=== PATIENT | female | born 1940 | race Asian ===

== ENCOUNTER 2016-08-15 08:55 | Outpatient (CLI) | payer MEDICARE, OTHER | END 2016-08-15 08:56 | disposition home or self-care (01) | DX: E78.5 Hyperlipidemia, unspecified (principal); E11.9 Type 2 diabetes mellitus without complications; M85.80 Other specified disorders of bone density and structure, unspecified site ==

== ENCOUNTER 2017-10-05 10:40 | Outpatient (CLI) | payer MEDICARE, OTHER ==
[2017-10-05 11:46] LABS: BASOPHILS # (AUTO) 0.1 10^3/uL (0.0-0.1); BASOPHILS % (AUTO) 1.2 %; EOSINOPHILS # (AUTO) 0.1 10^3/uL (0.0-0.7); EOSINOPHILS % (AUTO) 2.8 %; HGB - HEMOGLOBIN 14.2 g/dL (12.0-16.0); LYMPHOCYTES # (AUTO) 1.3 10^3/uL (1.5-3.5); LYMPHOCYTES % (AUTO) 29.5 %; MEAN CORPUSCULAR HEMOGLOBIN 31.9 pg (27.0-31.0); MEAN CORPUSCULAR HGB CONC 34.2 g/dL (32.0-36.0); MEAN CORPUSCULAR VOLUME 93.5 fL (81.0-99.0); MEAN PLATELET VOLUME 8.5 fL (7.9-10.8); MONOCYTES # (AUTO) 0.2 10^3/uL (0.0-1.0); MONOCYTES % (AUTO) 5.4 %; NEUTROPHILS # (AUTO) 2.7 10^3/uL (1.5-6.6); NEUTROPHILS % (AUTO) 61.1 %; PLT - PLATELET COUNT 210 10^3/uL (130-450); RED BLOOD COUNT 4.44 10^6/uL (4.20-5.40); RED CELL DISTRIBUTION WIDTH 12.3 % (12.0-15.0); WHITE BLOOD COUNT 4.4 x10^3/uL (4.8-10.8)
[2017-10-05 12:01] LABS: HB2 TOTAL 15.7 g/dL; HEMOGLOBIN A1C 0.78 g/dL; HEMOGLOBIN A1C % 6.7 % (4.6-6.2)
[2017-10-05 12:06] LABS: ALBUMIN 4.3 g/dL (3.2-5.5); ALBUMIN/GLOBULIN RATIO 1.3 (1.0-2.2); ALKALINE PHOSPHATASE 70 IU/L (42-121); ALT ALANINE AMINOTRANSFERASE 32 IU/L (10-60); AST ASPARTATE AMINOTRANSFERASE 33 IU/L (10-42); BILIRUBIN,TOTAL 0.8 mg/dL (0.2-1.0); BUN - BLOOD UREA NITROGEN 15 mg/dL (6-20); CALCIUM 9.4 mg/dL (8.5-10.3); CARBON DIOXIDE - CO2 27 mmol/L (21-32); CHLORIDE 102 mmol/L (101-111); CHOL/HDL RATIO 4.8 (<4.4); CHOLESTEROL 252 mg/dL; CREATININE 0.5 mg/dL (0.4-1.0); GFR - MDRD 120 (>89); GLUCOSE 117 mg/dL (70-100); HDL CHOLESTEROL 53 mg/dL; LDL CHOLESTEROL,CALCULATED 170 mg/dL; LDL/HDL RATIO 3.2 (<4.4); SODIUM 138 mmol/L (135-145); TOTAL PROTEIN 7.5 g/dL (6.7-8.2); VLDL CHOLESTEROL 29 mg/dL
== END 2017-10-05 10:41 | disposition home or self-care (01) ==
LOC: LAB 10:40
PROVIDERS: ATTEND Family Medicine
DX: M85.80 Other specified disorders of bone density and structure, unspecified site (principal); E78.5 Hyperlipidemia, unspecified; E11.9 Type 2 diabetes mellitus without complications
CPT/HCPCS: 36415; 80053; 80061; 82306; 83036; 83721; 85025

== ENCOUNTER 2018-01-16 09:39 | Outpatient (CLI) | payer MEDICARE, OTHER ==
[2018-01-16 10:07] LABS: CREATININE 0.5 mg/dL (0.4-1.0)
[2018-01-16 10:17] LABS: HB2 TOTAL 15.5 g/dL; HEMOGLOBIN A1C 0.74 g/dL; HEMOGLOBIN A1C % 6.5 % (4.6-6.2)
== END 2018-01-16 09:40 | disposition home or self-care (01) ==
LOC: LAB 09:39
PROVIDERS: ATTEND Family Medicine
DX: E11.9 Type 2 diabetes mellitus without complications (principal)
CPT/HCPCS: 36415; 80048; 83036

== ENCOUNTER 2018-10-05 10:01 | Outpatient (CLI) | payer MEDICARE, OTHER ==
--- NOTE | 2018-10-07 09:00 | XRAY Report ---
Reason: LEFT ANKLE PAIN Procedure Date: 10/05/2018 Accession Number: [id number] / [id number] Procedure: XR - Foot 3 View LT CPT Code: FULL RESULT: EXAM: LEFT FOOT RADIOGRAPHY EXAM DATE: 10/05/2018 10:38 AM. CLINICAL HISTORY: LEFT ANKLE PAIN. Left foot pain. COMPARISON: None. TECHNIQUE: 3 views. FINDINGS: Bones: Normal. No fractures or bone lesions. Joints: No subluxations. Evidence of mild degenerative disease at the tarsometatarsal joints, particularly of the first through third. Soft Tissues: Normal. No soft tissue swelling. IMPRESSION: 1. No acute abnormality. 2. Tarsometatarsal joint degenerative disease. RADIA
== END 2018-10-05 10:02 | disposition home or self-care (01) ==
LOC: DI 10:01
PROVIDERS: ATTEND Specialist
DX: M19.072 Primary osteoarthritis, left ankle and foot (principal)

== ENCOUNTER 2019-03-06 11:31 | Emergency (ER) | payer MEDICARE, OTHER ==
--- NOTE | 2019-03-06 12:27 | ED Physician Documentation ---
History of Present Illness - Stated complaint Stated Complaint: HIGH BP/AFIB - Chief complaint Chief Complaint: Cardiac - History obtained from History obtained from: Patient, Family - History of Present Illness Timing: Prior to arrival Severity Comments: mild, pt asymptomatic Quality: none Radiates to: no radiation Improved by: nothing Worsened by: nothing Associated symptoms: none, no cp, no sob, no abdominal pain, no nausea, vomiting, no palpitations or fluttering or racing of the heart, no leg pain or swelling - Treatment prior to arrival Treatment prior to arrival: none - Additonal information Additional information: Pt was at catarat surgery today and noted by [employer] CLEANING SUPERVISOR to be in atrial fibrillation that is rate controlled. She had no prior history of afib and the RUG CLEANING SUPERVISOR sent her to the ED. She has no symptoms. She does not know if she has ever had this before. She does not take blood thinners. Review of Systems Ten Systems: 10 systems reviewed and negative Constitutional: denies: Fever Cardiac: reports: Reviewed and negative Respiratory: reports: Reviewed and negative GI: reports: Reviewed and negative Skin: reports: Reviewed and negative Neurologic: reports: Reviewed and negative Endocrine: reports: Reviewed and negative. denies: Easy bruising / bleeding PD PAST MEDICAL HISTORY - Past Medical History Past Medical History: Yes Cardiovascular: High cholesterol Respiratory: COPD, Pneumonia Endocrine/Autoimmune: Type 2 diabetes GI: None PROC TECH: None : None HEENT: Other Psych: None Musculoskeletal: None Derm: None - Past Surgical History Past Surgical History: Yes /PROC TECH: section HEENT: Cataracts - Present Medications Home Medications: Ambulatory Orders Medication Instructions Recorded Confirmed Albuterol Sulfate [Ventolin Hfa] 60 puffs IH PRN 03/22/14 03/22/14 RX: metFORMIN [Glucophage] 500 mg BID 03/22/14 06/25/16 Aspirin [Aspir-Low] 81 mg DAILY 06/25/16 06/25/16 Azithromycin [Zithromax] 250 mg PO DAILY #4 tablet 06/25/16 Benzonatate [Tessalon Perle] 1 - 2 tab TID PRN 06/25/16 06/25/16 Cholecalciferol (Vitamin D3) 1 tab DAILY 06/25/16 06/25/16 [Vitamin D3] Montelukast [Singulair] 10 mg DAILY 06/25/16 06/25/16 RX: Atorvastatin [Lipitor] 10 mg DAILY 06/25/16 06/25/16 RX: predniSONE [Deltasone] 60 mg PO DAILY 5 Days tablet 06/25/16 Rivaroxaban [Xarelto] 20 mg PO QDDINNER #30 tablet 03/06/19 - Allergies Allergies/Adverse Reactions: Allergies Allergy/AdvReac Type Severity Reaction Status Date / Time aspirin AdvReac Hives Verified 03/06/19 11:38 - Social History Does the pt smoke?: No Smoking Status: Never smoker Does the pt drink ETOH?: No Does the pt have substance abuse?: No - Immunizations Immunizations are current?: Yes - POLST Patient has POLST: No PD ED PE NORMAL - Vitals Vital signs reviewed: Yes - General General: Alert and oriented X 3, No acute distress, Well developed/nourished - HEENT HEENT: Atraumatic - Neck Neck: Supple, no meningeal sign - Cardiac Cardiac: No murmur, No gallop, No rub, Strong equal pulses - Respiratory Respiratory: No respiratory distress, Clear bilaterally - Abdomen Abdomen: Soft, Non tender, Non distended - Female Female : Deferred - Rectal Rectal: Deferred - Derm Derm: Normal color, Warm and dry, No rash - Extremities Extremities: No deformity, No edema - Neuro Neuro: Alert and oriented X 3 Eye Opening: Spontaneous Motor: Obeys Commands Verbal: Oriented GCS Score: 15 - Psych Psych: Normal mood, Normal affect PD ED PE EXPANDED - Eyes Eyes: Other (left eye with dressing and cover applied s/p cataract surgery ) - Cardiac Cardiac: Regular Rate, Irregularly irregular Results - Vitals Vitals: Vital Signs - 24 hr 03/06/19 03/06/19 11:34 13:00 Temperature 36.4 C L 36.7 C Heart Rate 94 84 Respiratory 19 24 Rate Blood Pressure 175/110 H 141/74 H O2 Saturation 100 99 Oxygen O2 Source Room air - EKG (time done) 11:43 Rate: Rate (enter#) (90) Rhythm: Atrial fibrillation [place]: Normal Intervals: QRS normal Ischemia: Normal ST segments Computer interpretation: Agree with computer PD MEDICAL DECISION MAKING - ED course Complexity details: reviewed results, re-evaluated patient, considered differential, d/w patient, d/w family ED course: ddx- afib with rvr, rate controlled afib 78 y/o F found to be in rate controlled afib, asymptomatic and nonischemic EKG. Sent to ED by [employer] CLEAN[employer] SUPERVISOR after cataract surgery because she had no prior history and was told to get on blood thinners. Pt's BP is normal. Her rate is controlled and 85. She does have a CHADSVASC2 score of 4 and thus should be anticoagulated as she has never fallen and is low risk for anticoaguation per family. No prior hx of major bleeding. No trauma. No brain injury/bleeding. I had a discussion with pt and family about the risks and benefits of anticoagulation and they would like to anticoagulate. We discussed NOACs vs warfarin, and the prefer Xarelto. cataract surgery is low risk to initiate anticoagulation thus will initiate Xarelto per family. She does not require rate control and is not a good candidate for cardioversion as she has no idea when this started. Advised pt and family to call PCP for f/u to further manage her afib. Departure - Departure Disposition: 01 Home, Self Care Clinical Impression: Atrial fibrillation Condition: Stable Record reviewed to determine appropriate education?: Yes Instructions: Atrial Fibrillation Dc Follow-Up: Yari Harper ARNP [Primary Care Provider] - Prescriptions: Rivaroxaban [Xarelto] 20 mg PO QDDINNER #30 tablet Comments: You had an EKG today that showed that you have atrial fibrillation. This puts you at an increased risk of stroke thus it is important to take the prescribed blood thinner, Xarelto. Follow up with your own doctor within a week to further discuss the management plan for your irregular heart ratei. If you heart rate becomes very fast or you develop chest pain or shortness of breath return to the ED Discharge Date/Time: 03/06/19 13:06
[2019-03-06 13:01] VITALS: BP 141/74
== END 2019-03-06 13:06 | disposition home or self-care (01) ==
LOC: ED 11:31
DX: I48.91 Unspecified atrial fibrillation (principal); E11.9 Type 2 diabetes mellitus without complications; Z79.84 Long term (current) use of oral hypoglycemic drugs
CPT/HCPCS: 93005; 99283; 99284

== ENCOUNTER 2019-05-15 11:39 | Outpatient (CLI) | payer MEDICARE, OTHER ==
[2019-06-12 19:38] LABS: CALCIUM 9.4 mg/dL (8.5-10.3); CREATININE 0.6 mg/dL (0.4-1.0)
[2019-06-12 19:42] LABS: HB2 TOTAL 13.9 g/dL; HEMOGLOBIN A1C 0.7 g/dL; HEMOGLOBIN A1C % 6.8 % (4.6-6.2)
== END 2019-05-15 23:59 | disposition home or self-care (01) ==
LOC: LAB.WCP 11:39
PROVIDERS: ATTEND Family Medicine
DX: E11.9 Type 2 diabetes mellitus without complications (principal)
CPT/HCPCS: 36415; 80048; 83036

== ENCOUNTER 2019-10-06 10:09 | Emergency (ER) | payer MEDICARE, OTHER ==
--- NOTE | 2019-10-06 10:49 | XRAY Report ---
Reason: Trauma, frozen chicken vs foot Procedure Date: 10/06/2019 Accession Number: [id number] / [id number] Procedure: XR - Foot 3 View LT CPT Code: Final Report FULL RESULT: EXAM: LEFT FOOT RADIOGRAPHY EXAM DATE: 10/06/2019 10:35 AM. CLINICAL HISTORY: Trauma, frozen chicken vs foot. COMPARISON: FOOT 3 VIEW LT 10/05/2018 10:32 AM. TECHNIQUE: 3 views. FINDINGS: Bones: Normal. No fractures or bone lesions. Joints: Bunion formation. No subluxations. Soft Tissues: soft tissue swelling. IMPRESSION: Negative for fracture RADIA
[2019-10-06] MEDS ORDERED: SULFAMETH/TRIMETH DS 800/160 MG TABLET PO STA (13:01)
--- NOTE | 2019-10-06 13:22 | ED Physician Documentation ---
History of Present Illness - Stated complaint Stated Complaint: LT FOOT PX - Chief complaint Chief Complaint: Trauma Ext - History obtained from History obtained from: Patient, Family, Friend - History of Present Illness Timing: How many days ago (2) - Additonal information Additional information: Patient comes emergency department complaining of left foot pain after dropping a frozen chicken on her foot 2 days ago. She states that she has had swelling and has been able to limp around on the foot but that it hurts to bear weight. She denies anyHistory of injury to the foot. She is a diabetic and has noticed some redness over the dorsum of her foot. No fevers or chills. No streaking. Patient denies any other injuries. No other complaints at this time. Review of Systems Ten Systems: 10 systems reviewed and negative Constitutional: reports: Reviewed and negative Eyes: reports: Reviewed and negative Ears: reports: Reviewed and negative Nose: reports: Reviewed and negative Throat: reports: Reviewed and negative Cardiac: reports: Reviewed and negative Respiratory: reports: Reviewed and negative GI: reports: Reviewed and negative : reports: Reviewed and negative Skin: reports: Reviewed and negative Musculoskeletal: reports: Reviewed and negative Neurologic: reports: Reviewed and negative Psychiatric: reports: Reviewed and negative Endocrine: reports: Reviewed and negative Immunocompromised: reports: Reviewed and negative PD PAST MEDICAL HISTORY - Past Medical History Cardiovascular: High cholesterol Respiratory: COPD, Pneumonia Endocrine/Autoimmune: Type 2 diabetes GI: None 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 CAR 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: 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 : None HEENT: Other Psych: None Musculoskeletal: None Derm: None - Past Surgical History Past Surgical History: Yes /CUSTOM CAR BUILDER: section HEENT: Cataracts - Present Medications Home Medications: Ambulatory Orders Medication Instructions Recorded Confirmed Albuterol Sulfate [Ventolin Hfa] 60 puffs IH PRN 03/22/14 03/22/14 metFORMIN [Glucophage] 500 mg BID 03/22/14 06/25/16 Aspirin [Aspir-Low] 81 mg DAILY 06/25/16 06/25/16 Atorvastatin [Lipitor] 10 mg DAILY 06/25/16 06/25/16 Azithromycin [Zithromax] 250 mg PO DAILY #4 tablet 06/25/16 Benzonatate [Tessalon Perle] 1 - 2 tab TID PRN 06/25/16 06/25/16 Cholecalciferol (Vitamin D3) 1 tab DAILY 06/25/16 06/25/16 [Vitamin D3] Montelukast [Singulair] 10 mg DAILY 06/25/16 06/25/16 predniSONE [Deltasone] 60 mg PO DAILY 5 Days tablet 06/25/16 Rivaroxaban [Xarelto] 20 mg PO QDDINNER #30 tablet 03/06/19 Sulfamethox/Trimeth 800/160 1 each PO BID #14 tablet 10/06/19 [Bactrim Ds 800/160] - Allergies Allergies/Adverse Reactions: Allergies Allergy/AdvReac Type Severity Reaction Status Date / Time aspirin AdvReac Hives Verified 03/06/19 11:38 - Social History Does the pt smoke?: No Smoking Status: Never smoker Does the pt drink ETOH?: No Does the pt have substance abuse?: No - Immunizations Immunizations are current?: Yes - POLST Patient has POLST: No PD ED PE NORMAL - Vitals Vital signs reviewed: Yes - General General: Alert and oriented X 3, No acute distress - HEENT HEENT: PERRL - Neck Neck: Supple, no meningeal sign - Cardiac Cardiac: Strong equal pulses - Respiratory Respiratory: No respiratory distress - Derm Derm: Warm and dry, Other (Patient has edema and erythema over the dorsum of her left foot.No streaking.No induration or fluctuance.) - Extremities Extremities: No deformity, Other (Patient has moderate tenderness over the dorsum of her left foot.) - Neuro Neuro: Alert and oriented X 3 - Psych Psych: Normal mood, Normal affect Results - Vitals Vitals: Vital Signs - 24 hr 10/06/19 10/06/19 10:15 14:28 Temperature 36.7 C 36.7 C Heart Rate 112 H 94 Respiratory 18 12 Rate Blood Pressure 140/109 H 146/73 H O2 Saturation 99 99 Oxygen O2 Source Room air - Rads (name of study) Foot x-ray Radiology: Final report received, Discussed with rads, EMP read indepedently (IMPRESSION: Negative for fracture ) PD MEDICAL DECISION MAKING - ED course Complexity details: reviewed results, considered differential, d/w patient, d/w family ED course: Patient was evaluated with x-ray series of the foot, which was found to be negative. I felt the patient had likely bruised her foot, butGiven the extent of the erythema, which extended proximal to the patient's area of injury, I was concerned given the patient's history of diabetes, that she may have cellulitis. As such, I have started her on antibiotics here in the emergency department. We have discussed that she will need to take the antibiotics, but should also ice and elevate the foot, as well. There is no fracture on her x-ray series. We discussed the usual indications for return. Departure - Departure Disposition: 01 Home, Self Care Clinical Impression: Contusion, foot Qualifiers: Encounter type: initial encounter Laterality: left Qualified Code(s): S90.32XA - Contusion of left foot, initial encounter Cellulitis Qualifiers: Site of cellulitis: extremity Site of cellulitis of extremity: lower extremity Laterality: left Qualified Code(s): L03.116 - Cellulitis of left lower limb Condition: Good Instructions: Cellulitis Dc Prescriptions: Sulfamethox/Trimeth 800/160 [Bactrim Ds 800/160] 1 each PO BID #14 tablet Discharge Date/Time: 10/06/19 15:06
[2019-10-06 14:29] VITALS: BP 146/73
== END 2019-10-06 15:06 | disposition home or self-care (01) ==
LOC: ED 10:09
DX: S90.32XA Contusion of left foot, initial encounter (principal); L03.116 Cellulitis of left lower limb; W20.8XXA Other cause of strike by thrown, projected or falling object, initial encounter; E11.9 Type 2 diabetes mellitus without complications; Z79.84 Long term (current) use of oral hypoglycemic drugs
CPT/HCPCS: 73630; 99283; 99284; A9270

== ENCOUNTER 2019-10-28 14:55 | Outpatient (CLI) | payer MEDICARE, OTHER ==
[2019-10-28 15:30] LABS: CREATININE 0.6 mg/dL (0.4-1.0)
[2019-10-28 15:35] LABS: CALCIUM 9.4 mg/dL (8.5-10.3)
[2019-10-28 15:53] LABS: HB2 TOTAL 13.4 g/dL; HEMOGLOBIN A1C 0.71 g/dL
== END 2019-10-28 14:56 | disposition home or self-care (01) ==
LOC: LAB 14:55
PROVIDERS: ATTEND Nurse Practitioner Gerontology
DX: E11.9 Type 2 diabetes mellitus without complications (principal)
CPT/HCPCS: 36415; 80048; 83036

== ENCOUNTER 2019-11-12 09:32 | Outpatient (CLI) | payer MEDICARE, OTHER ==
[2019-11-12 09:55] LABS: HGB - HEMOGLOBIN 13.8 g/dL (12.0-16.0); MEAN CORPUSCULAR HEMOGLOBIN 30.7 pg (27.0-31.0); MEAN CORPUSCULAR HGB CONC 32.9 g/dL (32.0-36.0); MEAN CORPUSCULAR VOLUME 93.3 fL (81.0-99.0); MEAN PLATELET VOLUME 10.4 fL (7.9-10.8); RED BLOOD COUNT 4.49 10^6/uL (4.20-5.40); RED CELL DISTRIBUTION WIDTH 11.7 % (12.0-15.0); WHITE BLOOD COUNT 5.6 x10^3/uL (4.8-10.8)
[2019-11-12 10:25] LABS: CRP - C-REACTIVE PROTEIN 2.1 mg/dL (0-1.0); URIC ACID 6.3 mg/dL (2.6-7.2)
--- NOTE | 2019-11-12 11:01 | XRAY Report ---
Reason: FINGER PAIN IN RIGHT Procedure Date: 11/12/2019 Accession Number: [id number] / [id number] Procedure: XR - Hand 3 View RT CPT Code: Final Report FULL RESULT: EXAM: RIGHT HAND RADIOGRAPHY EXAM DATE: 11/12/2019 10:05 AM. CLINICAL HISTORY: Right finger pain. COMPARISON: None. TECHNIQUE: 3 views. FINDINGS: Bones: Normal. No fractures or bone lesions. Joints: 3rd DIP joint is narrow, there is some erosive change on both sides of the joint and broadening of the articular cartilage. PIP joint and MCP joint appear normal. No other similar features seen elsewhere. Mild narrowing of the 1st CMC joint. Soft Tissues: Soft tissue swelling around the 3rd finger. IMPRESSION: 3rd DIP joint is narrow, with marginal arthrosis and erosive change at the articular surface. Surrounding soft tissue swelling also noted. Findings most consistent with erosive osteoarthritis. Psoriasis also is possible, considered less likely because there is no involvement of the PIP joint or MCP joint. Moderate 1st CMC joint osteoarthritic narrowing. RADIA
== END 2019-11-12 09:33 | disposition home or self-care (01) ==
LOC: LAB 09:32 → DI 09:33
PROVIDERS: ATTEND Family Medicine
DX: M18.12 Unilateral primary osteoarthritis of first carpometacarpal joint, left hand (principal); M25.841 Other specified joint disorders, right hand; M65.332 Trigger finger, left middle finger
CPT/HCPCS: 36415; 84550; 85027; 85651; 86140

== ENCOUNTER 2020-09-09 07:57 | Outpatient (CLI) | payer MEDICARE, OTHER | END 2020-09-09 07:58 | disposition home or self-care (01) | LOC: COV 07:57 | PROVIDERS: ATTEND Family Medicine | DX: R05 Cough (principal); Z20.822 Contact with and (suspected) exposure to COVID-19 ==

== ENCOUNTER 2021-02-15 08:00 | Outpatient (CLI) | payer MEDICARE, OTHER ==
[2021-02-15 18:27] LABS: CALCIUM 9.3 mg/dL (8.5-10.3); CREATININE 0.7 mg/dL (0.4-1.0); POTASSIUM 4.1 mmol/L (3.5-5.0)
[2021-02-15 18:50] LABS: CREATININE,URINE 142.3 mg/dL; MICROALBUM/CREATININE RATIO,UR 48.5 ug/mg (<30.0); MICROALBUMIN,URINE 6.9 mg/dL (0-300.0)
[2021-02-15 21:03] LABS: ESTIMATED AVERAGE GLUCOSE 166 mg/dL (70-100); HEMOGLOBIN A1c% 7.4 % (4.27-6.07)
== END 2021-02-15 23:59 | disposition home or self-care (01) ==
LOC: LAB.N 08:00
PROVIDERS: ATTEND Family Medicine
DX: E11.9 Type 2 diabetes mellitus without complications (principal)
CPT/HCPCS: 36415; 80048; 82043; 82570; 83036

== ENCOUNTER 2021-11-22 15:55 | Emergency (ER) | payer MEDICARE, OTHER ==
[2021-11-22] MEDS ORDERED: CLINDAMYCIN 150 MG CAPSULE PO STA (17:54)
--- NOTE | 2021-11-22 18:00 | ED Physician Documentation ---
History of Present Illness - Stated complaint Stated Complaint: PX ON BELLY BUTTON/BLOOD - Chief complaint Chief Complaint: Abd Pain - History obtained from History obtained from: Patient - History of Present Illness Timing: How many weeks ago (2) Pain level max: 0 Pain level now: 0 - Additonal information Additional information: 81-year-old female presents to the emergency department stating that she has had redness and swelling to the inner aspect of her umbilicus over the past several weeks. Occasionally drains clear or bloody fluid. Nothing makes it better or worse. No fevers. No chills. 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 : None HEENT: Other Psych: None Musculoskeletal: None Derm: None - Past Surgical History Past Surgical History: Yes /DOUGH PUNCHER: section HEENT: Cataracts - Present Medications Home Medications: Ambulatory Orders Medication Instructions Recorded Confirmed Albuterol Sulfate [Ventolin Hfa] 60 puffs IH PRN 03/22/14 03/22/14 metFORMIN [Glucophage] 500 mg BID 03/22/14 06/25/16 Aspirin [Aspir-Low] 81 mg DAILY 06/25/16 06/25/16 Atorvastatin [Lipitor] 10 mg DAILY 06/25/16 06/25/16 Azithromycin [Zithromax] 250 mg PO DAILY #4 tablet 06/25/16 Benzonatate [Tessalon Perle] 1 - 2 tab TID PRN 06/25/16 06/25/16 Cholecalciferol (Vitamin D3) 1 tab DAILY 06/25/16 06/25/16 [Vitamin D3] Montelukast [Singulair] 10 mg DAILY 06/25/16 06/25/16 predniSONE [Deltasone] 60 mg PO DAILY 5 Days tablet 06/25/16 Rivaroxaban [Xarelto] 20 mg PO QDDINNER #30 tablet 03/06/19 Sulfamethox/Trimeth 800/160 1 each PO BID #14 tablet 10/06/19 [Bactrim Ds 800/160] clindamycin HCL [Cleocin HCl] 300 mg PO Q6H #40 cap 11/22/21 - Allergies Allergies/Adverse Reactions: Allergies Allergy/AdvReac Type Severity Reaction Status Date / Time aspirin AdvReac Hives Verified 11/22/21 16:08 - Social History Does the pt smoke?: No Smoking Status: Never smoker Does the pt drink ETOH?: No Does the pt have substance abuse?: No - Immunizations Immunizations are current?: Yes - POLST Patient has POLST: No PD ED PE NORMAL - Vitals Vital signs reviewed: Yes - General General: Alert and oriented X 3, No acute distress - HEENT HEENT: Moist mucous membranes - Cardiac Cardiac: RRR - Respiratory Respiratory: No respiratory distress, Clear bilaterally - Abdomen Abdomen: Soft, Non tender, Non distended, Other (Mild erythematous area on the inner aspect of the umbilicus. No drainage. Mild swelling. No other erythema. No cellulitis across the abdomen.) - Derm Derm: Warm and dry - Neuro Neuro: Alert and oriented X 3 Results - Vitals Vitals: Vital Signs - 24 hr 11/22/21 11/22/21 16:09 18:08 Temperature 36.4 C L 37.0 C Heart Rate 118 H 110 H Respiratory 18 20 Rate Blood Pressure 174/96 H 155/100 H O2 Saturation 98 99 Oxygen O2 Source Room air PD MEDICAL DECISION MAKING - ED course Complexity details: considered differential, d/w patient ED course: Patient with what looks like a small abscess versus cellulitis on the inner aspect of the umbilicus. No abdominal pain. No fevers. We will trial on antibiotics and have her follow-up with her doctor for further care. Patient and family counseled regarding signs and symptoms for which I believe and urgent re-evaluation would be necessary. Patient with good understanding of and agreement to plan and is comfortable going home at this time This document was made in part using voice recognition software. While efforts are made to proofread this document, sound alike and grammatical errors may occur. Departure - Departure Disposition: 01 Home, Self Care Clinical Impression: Abscess, umbilical Condition: Good Instructions: ED Staph Infec Abx Tx Only Follow-Up: Adriana Matias ARNP [Primary Care Provider] - Within 1 week (for wound check ) Prescriptions: clindamycin HCL [Cleocin HCl] 300 mg PO Q6H #40 cap Comments: Your antibiotics were [facility]. Please take all antib iotics until gone. Please return if you worsen. This should improve over the next 48 to 72 hours. Discharge Date/Time: 11/22/21 18:08
[2021-11-22 18:10] VITALS: BP 155/100
== END 2021-11-22 18:08 | disposition home or self-care (01) ==
LOC: ED 15:55
DX: L02.216 Cutaneous abscess of umbilicus (principal); I10 Essential (primary) hypertension; E11.9 Type 2 diabetes mellitus without complications; Z79.84 Long term (current) use of oral hypoglycemic drugs
CPT/HCPCS: 99282; A9270

== ENCOUNTER 2021-11-25 10:10 | Outpatient (CLI) | payer MEDICARE, OTHER ==
[2021-11-25 12:47] LABS: BASOPHILS % (AUTO) 0.8 %; EOSINOPHILS # (AUTO) 0.2 10^3/uL (0.0-0.7); EOSINOPHILS % (AUTO) 3.2 %; HCT - HEMATOCRIT 40.1 % (37.0-47.0); HGB - HEMOGLOBIN 13.6 g/dL (12.0-16.0); LYMPHOCYTES # (AUTO) 1.5 10^3/uL (1.5-3.5); LYMPHOCYTES % (AUTO) 30.5 %; MEAN CORPUSCULAR HEMOGLOBIN 31.5 pg (27.0-31.0); MEAN CORPUSCULAR HGB CONC 33.9 g/dL (32.0-36.0); MEAN CORPUSCULAR VOLUME 92.8 fL (81.0-99.0); MEAN PLATELET VOLUME 10.1 fL (7.9-10.8); MONOCYTES # (AUTO) 0.3 10^3/uL (0.0-1.0); MONOCYTES % (AUTO) 6.5 %; NEUTROPHILS # (AUTO) 2.9 10^3/uL (1.5-6.6); NEUTROPHILS % (AUTO) 58.6 %; PLT - PLATELET COUNT 252 10^3/uL (130-450); RED BLOOD COUNT 4.32 10^6/uL (4.20-5.40); RED CELL DISTRIBUTION WIDTH 11.3 % (12.0-15.0)
[2021-11-25 13:00] LABS: ALBUMIN 4.4 g/dL (3.2-5.5); ALBUMIN/GLOBULIN RATIO 1.2 (1.0-2.2); ALKALINE PHOSPHATASE 85 IU/L (42-121); ALT ALANINE AMINOTRANSFERASE 34 IU/L (10-60); AST ASPARTATE AMINOTRANSFERASE 33 IU/L (10-42); BILIRUBIN,TOTAL 0.9 mg/dL (0.2-1.0); BUN - BLOOD UREA NITROGEN 14 mg/dL (6-20); CALCIUM 9.5 mg/dL (8.5-10.3); CARBON DIOXIDE - CO2 28 mmol/L (21-32); CHLORIDE 101 mmol/L (101-111); CHOL/HDL RATIO 3.9 (<4.4); CHOLESTEROL 243 mg/dL; CREATININE 0.7 mg/dL (0.4-1.0); GFR - MDRD 81 (>89); GLUCOSE 158 mg/dL (70-100); HDL CHOLESTEROL 62 mg/dL; LDL CHOLESTEROL,CALCULATED 155 mg/dL; LDL/HDL RATIO 2.5 (<4.4); SODIUM 141 mmol/L (135-145); TRIGLYCERIDES 132 mg/dL; VLDL CHOLESTEROL 26 mg/dL
[2021-11-25 13:05] LABS: THYROID STIMULATING HORMONE 0.85 uIU/mL (0.34-5.60)
[2021-11-25 13:18] LABS: CREATININE,URINE 67.4 mg/dL; MICROALBUM/CREATININE RATIO,UR 17.8 ug/mg (<30.0); MICROALBUMIN,URINE 1.2 mg/dL (0-300.0)
== END 2021-11-25 10:11 | disposition home or self-care (01) ==
LOC: LAB.N 10:10
PROVIDERS: ATTEND Nurse Practitioner
DX: E11.9 Type 2 diabetes mellitus without complications (principal); E78.5 Hyperlipidemia, unspecified; I48.0 Paroxysmal atrial fibrillation
CPT/HCPCS: 36415; 80053; 80061; 81599; 82043; 82570; 83036; 83721; 84443; 85025

== ENCOUNTER 2023-09-26 09:33 | Outpatient (CLI) | payer MEDICARE, OTHER ==
[2023-09-26 10:00] LABS: CREATININE,URINE 19.3 mg/dL
[2023-09-26 10:04] LABS: MICROALBUMIN,URINE < 0.7 mg/dL
== END 2023-09-26 09:34 | disposition home or self-care (01) ==
LOC: LAB 09:33
PROVIDERS: ATTEND Nurse Practitioner
DX: E11.9 Type 2 diabetes mellitus without complications (principal)
CPT/HCPCS: 82043; 82570

== ENCOUNTER 2023-12-11 09:39 | Outpatient (CLI) | payer MEDICARE, OTHER ==
[2023-12-11 10:21] LABS: CHOL/HDL RATIO 3.4 (<4.4); CHOLESTEROL 217 mg/dL; HDL CHOLESTEROL 63 mg/dL; LDL CHOLESTEROL,CALCULATED 120 mg/dL; LDL/HDL RATIO 1.9 (<4.4); TRIGLYCERIDES 169 mg/dL (48-352); VLDL CHOLESTEROL 34 mg/dL
[2023-12-11 10:33] LABS: ESTIMATED AVERAGE GLUCOSE 220 mg/dL (70-100); HEMOGLOBIN A1c% 9.3 % (4.27-6.07)
== END 2023-12-11 09:40 | disposition home or self-care (01) ==
LOC: LAB 09:39
PROVIDERS: ATTEND Nurse Practitioner
DX: E78.5 Hyperlipidemia, unspecified (principal); E11.9 Type 2 diabetes mellitus without complications
CPT/HCPCS: 36415; 80061; 83036; 83721